=== PATIENT | female | born 1995 | race Caucasian/White ===

== ENCOUNTER 2019-05-13 10:21 | Emergency (ER) | payer OTHER ==
[~2019-05-13] VITALS: Ht 157.5 cm; Wt 54.4 kg
[2019-05-13] MEDS ORDERED: MEDROLDOSEPACK PO (11:35)
[2019-05-13] MEDS ORDERED: ROBAXIN 750 MG750 MG PO (11:35)
[2019-05-13 11:43] VITALS: BP 112/55
== END 2019-05-13 11:44 | disposition home or self-care (01) ==
LOC: M.ERS 10:21
DX: S16.1XXA Strain of muscle, fascia and tendon at neck level, initial encounter (principal); R51 Headache; W22.8XXA Striking against or struck by other objects, initial encounter; Y93.89 Activity, other specified; Y92.89 Other specified places as the place of occurrence of the external cause; Y99.8 Other external cause status

== ENCOUNTER 2019-11-03 08:28 | Emergency (ER) | payer OTHER ==
[~2019-11-03] VITALS: Ht 157.5 cm; Wt 56.7 kg
[~2019-11-03 08:28] MED LIST: MEDROLDOSEPACK PO; ROBAXIN 750 MG750 MG PO
[2019-11-03] MEDS ORDERED: PREDNISONE 20 M20 M1 PO (09:30)
[2019-11-03] MEDS ORDERED: VENTOLIN HFA 1818 GM INH (09:30)
[2019-11-03 09:58] LABS: INFLUENZA A ANTIGEN Negative (Negative); INFLUENZA B ANTIGEN Negative (Negative)
[2019-11-03 10:29] VITALS: BP 109/80
== END 2019-11-03 10:30 | disposition home or self-care (01) ==
LOC: M.ERS 08:28
PROVIDERS: Family Medicine
DX: J06.9 Acute upper respiratory infection, unspecified (principal); J45.909 Unspecified asthma, uncomplicated; J02.9 Acute pharyngitis, unspecified

== ENCOUNTER 2019-11-07 04:08 | Emergency (ER) | payer OTHER ==
[~2019-11-07] VITALS: Ht 157.5 cm; Wt 49.9 kg
[~2019-11-07 04:08] MED LIST changes: +PREDNISONE 20 M20 M1 PO; +VENTOLIN HFA 1818 GM INH
[2019-11-07] MEDS ORDERED: [UNRECOGNIZED DRUG - REMARK] (04:39)
[2019-11-07 04:43] LABS: URINE BILIRUBIN NEGATIVE (Negative); URINE BLOOD NEGATIVE (Negative); URINE CLARITY CLEAR; URINE COLOR STRAW; URINE GLUCOSE-RANDOM NEGATIVE (Negative); URINE KETONES NEGATIVE (Negative); URINE LEUKOCYTES-REFLEX NEGATIVE (Negative); URINE NITRITE-REFLEX NEGATIVE (Negative); URINE PROTEIN NEGATIVE (Negative); URINE UROBILINOGEN 0.2 E.U./dl (0.2-1.0)
[2019-11-07 05:16] LABS: ABSOLUTE MONOCYTES 0.7 thou/uL (0.0-1.2); ABSOLUTE NEUTROPHILS 8.5 thou/uL (1.6-8.1); BASOPHILS 0.3 %; EOSINOPHILS 0.3 %; HEMATOCRIT 40.6 % (37.0-47.0); HEMOGLOBIN 14.2 gm/dL (12.0-15.0); LYMPHOCYTES 9.3 %; MCH 29.8 pg (26.0-34.0); MCV 85.1 fL (80.0-100.0); MONOCYTES 6.8 %; MPV 9.8 fl. (7.2-11.1); NUCLEATED RBCS 0 /100WBC; PLATELET COUNT* 165 thou/uL (150-400); POLYS 83.3 %; RBC 4.77 mil/uL (4.20-5.00); WBC 10.2 thou/uL (4.0-11.0)
[2019-11-07 05:21] LABS: CALCIUM 8.5 mg/dL (8.5-10.1); POTASSIUM 3.1 mmol/L (3.5-5.1)
[2019-11-07 05:29] LABS: ALBUMIN 4.1 g/dL (3.4-5.0); TOTAL BILIRUBIN 0.5 mg/dL (<0.1-1.0); TOTAL PROTEIN 7.6 g/dL (6.4-8.2)
[2019-11-07] MEDS ORDERED: ZOFRAN ODT4 MG PO (06:21)
[2019-11-07 06:29] VITALS: BP 123/68
== END 2019-11-07 06:29 | disposition home or self-care (01) ==
LOC: M.ERS 04:08
PROVIDERS: Emergency Medicine
DX: R19.7 Diarrhea, unspecified (principal); R11.2 Nausea with vomiting, unspecified; R10.13 Epigastric pain; R10.33 Periumbilical pain; J45.909 Unspecified asthma, uncomplicated